=== PATIENT | female | born 1950 | race Asian ===

== ENCOUNTER → 2018-03-06 14:00 | Outpatient (CLI) | payer OTHER, SELFPAY | PROVIDERS: PCP Family Medicine | DX: Z23 Encounter for immunization (principal) ==

== ENCOUNTER → 2019-04-06 11:51 | Outpatient (CLI) | payer OTHER, SELFPAY | PROVIDERS: PCP Family Medicine | DX: Z23 Encounter for immunization (principal) | CPT/HCPCS: 90471; 90686 ==

== ENCOUNTER → 2019-05-13 07:10 | Outpatient (CLI) | payer OTHER, SELFPAY ==
[2019-05-13 07:56] LABS: Add Manual Diff / Slide Review NO; Basophils Absolute Auto 0 /uL (0-100); Basophils Percent Auto 1.1 % (0-2); Eosinophils Absolute Auto 100 /uL (0-450); Eosinophils Percent Auto 3.2 % (2-4); Hematocrit 39.2 % (36-46); Hemoglobin 13.3 g/dL (12.0-16.0); Lymphocytes Absolute Auto 1600 /uL (1100-4500); Lymphocytes Percent Auto 40.5 % (25-40); Mean Corpuscular HGB Conc 34.1 % (30-36); Mean Corpuscular Hemoglobin 31.4 PG (26-34); Mean Corpuscular Volume 92.1 fL (80-100); Monocytes Absolute Auto 300 /uL (0-900); Monocytes Percent Auto 7.5 % (3-14); Neutrophils Absolute Auto 1900 /uL (1500-7000); Neutrophils Percent Auto 47.7 % (50-75); Platelet Count 203 X10^3/uL (150-400); Red Blood Cell Count 4.25 X10^6/uL (4.0-5.2); Red Cell Distribution Width 12.1 % (11.6-14.8)
[2019-05-13 08:10] LABS: Appearance Urine UA CLEAR; Bilirubin Urine UA NEGATIVE (NEGATIVE); Color Urine UA YELLOW; Glucose Urine UA NEGATIVE (Negative); Ketones Urine UA NEGATIVE (NEGATIVE); Leukocyte Esterase Urine UA NEGATIVE (NEGATIVE); Nitrite Urine UA NEGATIVE (Negative); Occult Blood Urine UA 1+ (Negative); Protein Urine UA NEGATIVE (Negative); Specific Gravity Urine UA <=1.005 (1.000-1.035); Urobilinogen Urine UA 0.2 E.U./dL (0.2)
[2019-05-13 08:12] LABS: Bacteria Urine None Seen; WBC Urine None Seen (0-5/HPF)
[2019-05-13 08:17] LABS: Alanine Aminotransferase 16 IU/L (<35); Albumin 4.5 g/dL (3.5-5.0); Albumin Globulin Ratio 1.3 (1.0-2.8); Alkaline Phosphatase 91 U/L (38-126); Aspartate Aminotransferase 30 IU/L (14-36); BUN Creatinine Ratio 21.7 (6-22); Bilirubin Total 1.1 mg/dL (0.2-1.3); Blood Urea Nitrogen 13 mg/dL (7-17); Calcium 10.6 mg/dL (8.4-10.2); Carbon Dioxide 28 mmol/L (22-32); Chloride 98 mmol/L (98-107); Cholesterol 183 mg/dL (140-199); Estimated Glomerular Filt Rate > 60.0 mL/min (>60); Globulin 3.4 g/dL (1.7-4.1); Glucose 94 mg/dL (80-110); HDL Cholesterol 69 mg/dL (40-60); HEMOLYSIS < 15 (0-50); LDL Cholesterol Calculated 101 mg/dL (<100); Potassium 3.8 mmol/L (3.4-5.1); Sodium 134 mmol/L (137-145); Total Protein 7.9 g/dL (6.3-8.2); Triglycerides 66 mg/dL (35-150)
[2019-05-13 08:29] LABS: Culture Indicated Urine Cult Not Indicated; RBC Urine 0-1/HPF (0-5/HPF); Squamous Epithelial Cell Urine 0-1 /HPF (0-5/HPF)
[2019-05-13 09:53] LABS: Thyroid Stimulating Hormone 1.07 uIU/mL (0.47-4.68)
== END ==
PROVIDERS: PCP Family Medicine; Visit Provider Family Medicine
DX: E16.2 Hypoglycemia, unspecified (principal); I10 Essential (primary) hypertension; Z13.29 Encounter for screening for other suspected endocrine disorder
CPT/HCPCS: 36415; 80053; 80061; 81003; 81015; 84443; 85025

== ENCOUNTER → 2020-04-11 15:55 | Outpatient (CLI) | payer OTHER, SELFPAY | PROVIDERS: PCP Family Medicine; Referring Provider Internal Medicine; Visit Provider Internal Medicine | DX: Z23 Encounter for immunization (principal) | CPT/HCPCS: 90471; 90682 ==

== ENCOUNTER 2020-11-25 05:35 | Emergency (ER) | payer OTHER, SELFPAY ==
[2020-11-25 07:25] VITALS: BP 174/79; PULSE 62; RESP 18; TEMP 36.3; O2SAT 99; BMI 21.5
--- NOTE | 2020-11-25 07:54 | ED.BACK ---
HPI - Back Pain/Injury General Chief Complaint: Back Pain/Injury Stated Complaint: LOWER BACK PAIN Time Seen by Provider: 11/25/20 07:34 Source: patient Limitations: no limitations History of Present Illness HPI Narrative: 70-year-old with no significant medical history who takes no medications and and has had significant reactions to small doses of aspirin, Tylenol, Motrin, Vicodin and is not interested in pharmacologic treatment of her acute back pain. She describes on November 16 helping lift a patient and felt of pull in a pop in her back and has been having left-sided low back pain and central L4-L5 back pain ever since. She has been using ice and heat along with yoga stretches but finds that it isn't improving at all. 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 She is able to sleep but is wondering what additional options there might be and is also somewhat concerned that it is not improving at all. She has no fevers, cough, chills, dysuria, flank pain, abdominal pain, chest pain or palpitations. She has no skin changes over the area of concern and is just today beginning to notice some mild radicular pain into the middle of her right buttock. Related Data Allergies Allergy/AdvReac Type Severity Reaction Status Date / Time latex Allergy Verified 05/11/19 08:56 acetaminophen [From Vicodin] AdvReac Verified 05/11/19 08:56 hydrocodone [From Vicodin] AdvReac Verified 05/11/19 08:56 Review of Systems Review of Systems Narrative: Remainder of complete review of systems is otherwise unremarkable except for that included in the HPI. Patient History Surgical History Anesthesia History of cataract removal with insertion of prosthetic lens (~2013) History of removal of cyst (~1984) Family History Father No problems noted. Sister No problems noted. Social History Smoking Status: Never smoker Smoking Status: Never smoker Substance Use Type: does not use Exam Narrative Exam Narrative: General: Alert appropriate in no acute distress Respiratory: Able to speak in full sentences, no obvious respiratory distress Skin: No obvious rashes, warm and dry Neurologic: Grossly intact no obvious asymmetries or abnormalities Psych: appropriate insight and affect, cooperative Spine: No redness or swelling over the spine. She does have some midline tenderness to palpation around the L4-L5 area and some minor paraspinous muscle spasm on the left lower lumbar area. She has no neurologic or vascular deficits into lower extremities. Initial Vital Signs Initial Vital Signs: Vital Signs Temperature 97.4 F L 11/25/20 07:25 Pulse Rate 62 11/25/20 07:25 Respiratory Rate 18 11/25/20 07:25 Blood Pressure 174/79 H 11/25/20 07:25 Pulse Oximetry 99 11/25/20 07:25 Course Orders Ordered: ED Orders 11/25/20 08:02 XR lumbar spine 2-3V Stat Vital Signs Vital signs: Vital Signs - 8 hr 11/25/20 07:25 Temperature 97.4 F L Pulse Rate 62 Respiratory Rate 18 Blood Pressure 174/79 H Pulse Oximetry 99 [facility] - Back Pain/Injury Imaging Data XR Lumbar spine: My Impression: No evidence of dramatic osteoporosis, no compression fracture, mild degenerative joint disease L4-5 and L5-S1. [facility] Narrative Medical decision making narrative: 70-year-old woman with a work injury while lifting a patient on November 16 with continued low back pain. She is not interested in any pharmacologic treatment including Tylenol. She is at significant risk for osteoporosis with her age, petite size and heritage period lumbar spine x-rays do not show evidence of an acute compression fracture. 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 Discharge Plan Departure Patient Disposition: Home Clinical Impression: Strain of lumbar region Qualifiers: Encounter type: initial encounter Qualified Code(s): S39.012A - Strain of muscle, fascia and tendon of lower back, initial encounter Instructions: DI for Low Back Pain Activity Restrictions/Additional Instructions: Thank you for coming in today You have no evidence of of compression fracture or other significant pathology. You have clearly strange your back. 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 I hope you feel better Referrals: Cheyanne Gonzalez, [Primary Care Provider] -
--- NOTE | 2020-11-25 08:02 | DI.RAD.S_ITS ---
PROCEDURE: XR LUMBAR SPINE 2-3V INDICATIONS: ? L 4 or 5 compression fracture TECHNIQUE: 3 views of the lumbar spine were acquired. COMPARISON: None. FINDINGS: Bones: 5 [id number] vertebrae are present. There is normal bony alignment. Question mild acute superior endplate compression fracture of L5. This is not definite. No suspicious bony lesions. Lower lumbar facet arthropathy. Soft tissues: Overlying bowel gas pattern is normal. No suspicious soft tissue calcifications. IMPRESSION: Lower lumbar facet arthropathy. Question minimal superior endplate compression fracture of L5. Comment: Consider lumbar spine MRI for correlation of an acute compression fracture. Dictated by: Lamont Mcgregor M.D. on 11/25/2020 at 8:46 Approved by: Lamont Mcgregor M.D. on 11/25/2020 at 8:47
== END 2020-11-25 09:20 | disposition home or self-care (01) ==
PROVIDERS: Emergency Provider Emergency Medicine; PCP Family Medicine
DX: S39.012A Strain of muscle, fascia and tendon of lower back, initial encounter (principal)
CPT/HCPCS: 72100; 99283

== ENCOUNTER → 2021-03-26 06:44 | Outpatient (CLI) | payer OTHER, SELFPAY ==
[2021-03-26 07:57] LABS: Add Manual Diff / Slide Review NO; Basophils Absolute Auto 0 /uL (0-100); Basophils Percent Auto 0.8 % (0-2); Eosinophils Absolute Auto 100 /uL (0-450); Eosinophils Percent Auto 1.4 % (2-4); Hematocrit 40.2 % (36-46); Hemoglobin 13.5 g/dL (12.0-16.0); Lymphocytes Absolute Auto 1800 /uL (1100-4500); Lymphocytes Percent Auto 37.3 % (25-40); Mean Corpuscular HGB Conc 33.5 % (30-36); Mean Corpuscular Hemoglobin 30.7 PG (26-34); Mean Corpuscular Volume 91.8 fL (80-100); Monocytes Absolute Auto 400 /uL (0-900); Monocytes Percent Auto 7.2 % (3-14); Neutrophils Absolute Auto 2600 /uL (1500-7000); Neutrophils Percent Auto 53.3 % (50-75); Platelet Count 192 X10^3/uL (150-400); Red Blood Cell Count 4.38 X10^6/uL (4.0-5.2); Red Cell Distribution Width 12.5 % (11.6-14.8); White Blood Cell Count 4.8 X10^3/uL (4.5-11.0)
[2021-03-26 08:05] LABS: Creatinine Urine Random 12.2 mg/dL
[2021-03-26 08:13] LABS: Alanine Aminotransferase 16 IU/L (<35); Albumin 4.7 g/dL (3.5-5.0); Albumin Globulin Ratio 1.3 (1.0-2.8); Alkaline Phosphatase 83 U/L (38-126); Aspartate Aminotransferase 31 IU/L (14-36); BUN Creatinine Ratio 17.5 (6-22); Bilirubin Total 1.1 mg/dL (0.2-1.3); Blood Urea Nitrogen 10 mg/dL (7-17); Calcium 10.5 mg/dL (8.4-10.2); Carbon Dioxide 30 mmol/L (22-32); Chloride 97 mmol/L (98-107); Cholesterol 185 mg/dL (140-199); Estimated Glomerular Filt Rate > 60.0 mL/min (>60); Globulin 3.5 g/dL (1.7-4.1); Glucose 93 mg/dL (80-110); HDL Cholesterol 81 mg/dL (40-60); HEMOLYSIS < 15 (0-50); LDL Cholesterol Calculated 89 mg/dL (<100); Potassium 3.4 mmol/L (3.4-5.1); Sodium 134 mmol/L (137-145); Total Protein 8.2 g/dL (6.3-8.2); Triglycerides 73 mg/dL (35-150)
[2021-03-26 08:16] LABS: Microalbumin Urine Random < 0.6 mg/dL (0-1.6)
[2021-03-27 14:31] LABS: Calcium 10.2 mg/dL (8.7-10.3); Parathyroid Hormone, Intact 116 pg/mL (15-65)
== END ==
PROVIDERS: PCP Family Medicine; Referring Provider Family Medicine; Visit Provider Family Medicine
DX: E83.52 Hypercalcemia (principal); I10 Essential (primary) hypertension
CPT/HCPCS: 36415; 80053; 80061; 82043; 82310; 82570; 83970; 84443; 85025

== ENCOUNTER → 2021-04-18 06:49 | Outpatient (CLI) | payer OTHER, MEDICARE, SELFPAY | PROVIDERS: PCP Family Medicine; Referring Provider Internal Medicine; Visit Provider Internal Medicine | DX: Z23 Encounter for immunization (principal) | CPT/HCPCS: 90471; 90686 ==

== ENCOUNTER 2021-08-31 14:30 | Outpatient (RCR) | payer OTHER, MEDICARE, SELFPAY ==
--- NOTE | 2021-08-17 10:40 | PT.OIE ---
Current Diagnoses Other chronic pain (08/17/21) Pain in right shoulder (08/17/21) Impingement syndrome of right shoulder (08/17/21) Past Medical History (Last Updated 04/13/21 @ 15:18 by Fahad Gramajo MD) History of cataract removal with insertion of prosthetic lens (~2013) History of removal of cyst (~1984) Hypercalcemia Hyperparathyroidism Past Surgical History (Last Reviewed 01/02/21 @ 20:32 by SHOSHANA Bermudez) Anesthesia History of cataract removal with insertion of prosthetic lens (~2013) History of removal of cyst (~1984) Visit Care Team Role Provider Type Fahad Gramajo MD Attending Provider Physician Family Provider Primary Care Provider Referring Provider Specialty: [facility] Address: [address] [place] [address], [facility] Email: [email or web address] Physical Therapy Initial Evaluation PT-OP-A Visit Information Start: 08/16/21 10:39 Freq: Status: Active Protocol: Document 08/17/21 08:17 AMB (Rec: 08/17/21 08:55 AMB [id number]) Out-Patient Physical Therapy Visit Information Visit Information Visit Type Initial Evaluation PT-OP-B Current Condition Start: 08/16/21 10:39 Freq: Status: Active Protocol: Document 08/17/21 08:17 AMB (Rec: 08/17/21 08:55 AMB [id number]) Current Condition History of Current Condition Onset Date 1 month Current Complaints R shoulder pain History of Current Condition Insidious onset, noticed pain in shoulder one morning when waking up, denies anything specific the day before. 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 She notes pulling on heavy doors increases her symptoms. She is on light duty currently. She denies hair care/dressing are problematic, does have to be careful with lifting. 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 Was doing 50 pushups, but stopped because of the pain. Denies numbness/ tingling/radiating sx. Pain can go up into neck a little. RHD. Treatment Goals Patient/Caregiver Goals Decrease shoulder pain Prior Functional Status Baseline Function- ADL's Independent Baseline Function- Mobility Independent Current Functional Impairments (Reported) Functional Limitations- Work/School On light duty, tries to avoid moving patients, pain with pulling on heavy doors with affected arm. PT-OP-C Subjective Start: 08/16/21 10:39 Freq: Status: Active Protocol: Document 08/17/21 08:15 AMB (Rec: 08/19/21 10:40 AMB [id number]) Patient Questionnaires Quick Dash- Upper Extremity Quick Dash UE Score 14 Quick Dash UE Impairment 1 to 19% Impaired (Score 1-19) OP-PT Pain Assessment Comments Pain Comments 06/04 R shoulder PT-OP-J Posture/Palpation/Skin Start: 08/16/21 10:39 Freq: Status: Active Protocol: Document 08/17/21 08:15 AMB (Rec: 08/19/21 10:40 AMB [id number]) Posture Evaluation Comments Posture Comments Mild forward head Palpation Assessment Location One Palpation Location R shoulder Palpation Details Denies any tenderness over scapula, does have tenderness over biceps tendons and acromion process PT-OP-K Range of Motion Start: 08/16/21 10:39 Freq: Status: Active Protocol: Document 08/17/21 08:15 AMB (Rec: 08/19/21 10:40 AMB [id number]) Shoulder Goniometric Range of Motion Shoulder Right Passive Testing Position Supine Flexion 170 Abduction 150 External Rotation at 90 degrees 90 Abduction Comments abduction painful Left Active Shoulder ROM WFL Yes Testing Position Sitting PT-OP-L Special Tests Start: 08/16/21 10:39 Freq: Status: Active Protocol: Document 08/17/21 08:15 AMB (Rec: 08/19/21 10:40 AMB [id number]) Special Tests Shoulder Special Tests Neer Impingement Test Results + Mccarty Alfredito Impingement Test Results + PT-OP-M Strength Start: 08/16/21 10:39 Freq: Status: Active Protocol: Document 08/17/21 08:15 AMB (Rec: 08/19/21 10:40 AMB [id number]) Shoulder Strength Shoulder Manual Muscle Testing Right Flexion 4 Good Extension 4 Good Abduction (C5) 4+ Good+ External Rotation 4 Good Internal Rotation 4+ Good+ Comments extension painful PT-OP-Q Treatments Start: 08/16/21 10:39 Freq: Status: Active Protocol: Document 03/25/22 08:15 AMB (Rec: 08/19/21 10:40 AMB [id number]) Therapeutic Exercises Standing Exercises t band extension Side bilateral Resistance #3 latex free Reps/Minutes 2x10 t band rows Side bilateral Resistance #3 latex free Reps/Minutes 2x10 PT-OP-T Assessment and Plan Start: 08/16/21 10:39 Freq: Status: Active Protocol: Document 08/17/21 08:15 AMB (Rec: 08/19/21 10:40 AMB [id number]) Physical Therapy Assessment Rehab Potential Rehabilitation Potential Good Evaluation Complexity Number of Personal Factors/Comorbidities 0 Number of Body Systems Impaired 4 or More Clinical Presentation at Evaluation Stable Impairments Impairments Functional Activities,Pain,ROM ,Strength Goals Two Impairment Strength Short Term Goal (STG) Billy will show improve shoulder strength to 4+/5 in all planes. STG Duration 4 weeks Mechanical Technical Service Specialist Goal (LTG) Billy will show improved shoulder strength by being able to open any door without shoulder pain. LTG Duration 8 weeks One Impairment ROM Short Term Goal (STG) Billy will increase her right shoulder abduction AROM to 180 degrees. STG Duration 4 weeks Assessment Summary Assessment Billy attends physical therapy with recent onset right anterior and lateral shoulder pain. ROM was mildly restricted into abduction and pt reported pain with resisted extension and external rotation. Special tests did show signs of impingement. 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 Her MD already put her on light duty. PT encouraged her to open the door with good body mechanics, using the weight of her body and using the left arm if able. Pt was still very concerned about return to work, so directed her to discuss further with HR. Pt would benefit from PT for shoulder strengthening to reduce impingement symptoms so she can return to using her right shoulder without pain. Physical Therapy Plan Frequency and Duration Frequency of Treatment 2x/Week Duration of Treatment 8 weeks Plan of Care Start Date 08/17/21 Plan of Care End Date 10/12/21 Therapeutic Interventions Therapeutic Interventions Home Exercise Program,Joint Mobilizations,Manual Therapy, Neuromuscular Re-education, Self-Care/Home Management, Therapeutic Activities, Therapeutic Exercises Modalities Cold Pack/Ice Massage,Electric Stimulation,Hot Packs, Ultrasound Next Visit Focus/Plan Next Note Type Treatment Note Next Visit Plan Reassess HEP, pogress strenghtening especially into rotation
--- NOTE | 2021-08-17 10:41 | PT.OPPOC ---
Physical, Occupational & Speech Therapy At [facility] Current Diagnoses Other chronic pain (08/17/21) Pain in right shoulder (08/17/21) Impingement syndrome of right shoulder (08/17/21) Visit Care Team Role Provider Type Fahad Gramajo MD Attending Provider Physician Family Provider Primary Care Provider Referring Provider Specialty: Family Practice Address: [address] [place] [address], [facility] Email: [email or web address] Plan Of Care PT-OP-T Assessment and Plan Start: 08/16/21 10:39 Freq: Status: Active Protocol: Document 08/17/21 08:15 AMB (Rec: 08/19/21 10:40 AMB [id number]) Physical Therapy Assessment Rehab Potential Rehabilitation Potential Good Evaluation Complexity Number of Personal Factors/Comorbidities 0 Number of Body Systems Impaired 4 or More Clinical Presentation at Evaluation Stable Impairments Impairments Functional Activities,Pain,ROM ,Strength Goals Two Impairment Strength Short Term Goal (STG) Billy will show improve shoulder strength to 4+/5 in all planes. STG Duration 4 weeks Vertical Contour Band Saw Operator Goal (LTG) Billy will show improved shoulder strength by being able to open any door without shoulder pain. LTG Duration 8 weeks One Impairment ROM Short Term Goal (STG) Billy will increase her right shoulder abduction AROM to 180 degrees. STG Duration 4 weeks Assessment Summary Assessment Billy attends physical therapy with recent onset right anterior and lateral shoulder pain. ROM was mildly restricted into abduction and pt reported pain with resisted extension and external rotation. Special tests did show signs of impingement. 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 Her MD already put her on light duty. PT encouraged her to open the door with good body mechanics, using the weight of her body and using the left arm if able. Pt was still very concerned about return to work, so directed her to discuss further with HR. Pt would benefit from PT for shoulder strengthening to reduce impingement symptoms so she can return to using her right shoulder without pain. Physical Therapy Plan Frequency and Duration Frequency of Treatment 2x/Week Duration of Treatment 8 weeks Plan of Care Start Date 08/17/21 Plan of Care End Date 10/12/21 Therapeutic Interventions Therapeutic Interventions Home Exercise Program,Joint Mobilizations,Manual Therapy, Neuromuscular Re-education, Self-Care/Home Management, Therapeutic Activities, Therapeutic Exercises Modalities Cold Pack/Ice Massage,Electric Stimulation,Hot Packs, Ultrasound Next Visit Focus/Plan Next Note Type Treatment Note Next Visit Plan Reassess HEP, pogress strenghtening especially into rotation Plan of Care Dates Plan of Care Start Date 08/17/21 Plan of Care End Date 10/12/21 Electronically Signed by: Anabelle Laureano, PT 08/19/21 1041 Please Sign and Return: I have reviewed this Plan of Care and certify that the skilled therapy services above are required to meet the patient?s needs. Physician Signature Date Printed Name and Credentials Clinical Instructor Signature Printed Name and Credentials
--- NOTE | 2021-08-31 15:06 | PT.OTN ---
Current Diagnoses Other chronic pain (08/31/21) Pain in right shoulder (08/31/21) Impingement syndrome of right shoulder (08/31/21) Physical Therapy Treatment Note PT-OP-A Visit Information Start: 08/16/21 10:39 Freq: Status: Active Protocol: Document 08/31/21 14:57 MA (Rec: 08/31/21 15:05 MA [id number]) Out-Patient Physical Therapy Visit Information Visit Information Visit Type Treatment Note Visit Start Time 14:30 Visit Stop Time 15:55 Total Visit Minutes 25 Visit Number 1 Number of RIBBON BLOCKER Visits 1 PT-OP-B Current Condition Start: 08/16/21 10:39 Freq: Status: Active Protocol: Document 08/17/21 08:17 AMB (Rec: 08/17/21 08:55 AMB [id number]) Current Condition History of Current Condition Onset Date 1 month Current Complaints R shoulder pain History of Current Condition Insidious onset, noticed pain in shoulder one morning when waking up, denies anything specific the day before. 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 She notes pulling on heavy doors increases her symptoms. She is on light duty currently. She denies hair care/dressing are problematic, does have to be careful with lifting. 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 Was doing 50 pushups, but stopped because of the pain. Denies numbness/ tingling/radiating sx. Pain can go up into neck a little. RHD. Treatment Goals Patient/Caregiver Goals Decrease shoulder pain Prior Functional Status Baseline Function- ADL's Independent Baseline Function- Mobility Independent Current Functional Impairments (Reported) Functional Limitations- Work/School On light duty, tries to avoid moving patients, pain with pulling on heavy doors with affected arm. PT-OP-C Subjective Start: 08/16/21 10:39 Freq: Status: Active Protocol: Document 08/31/21 14:57 MA (Rec: 08/31/21 15:05 MA [id number]) OP-PT Subjective Patient Comments Patient Comments Pt states her sister recently passed so she had time off work and the rest seemed to heal her shd. She has had no pain since eval and would like to be d/c PT-OP-J Posture/Palpation/Skin Start: 08/16/21 10:39 Freq: Status: Active Protocol: Document 08/17/21 08:15 AMB (Rec: 08/19/21 10:40 AMB [id number]) Posture Evaluation Comments Posture Comments Mild forward head Palpation Assessment Location One Palpation Location R shoulder Palpation Details Denies any tenderness over scapula, does have tenderness over biceps tendons and acromion process PT-OP-K Range of Motion Start: 08/16/21 10:39 Freq: Status: Active Protocol: Document 08/17/21 08:15 AMB (Rec: 08/19/21 10:40 AMB [id number]) Shoulder Goniometric Range of Motion Shoulder Right Passive Testing Position Supine Flexion 170 Abduction 150 External Rotation at 90 degrees 90 Abduction Comments abduction painful Left Active Shoulder ROM WFL Yes Testing Position Sitting PT-OP-L Special Tests Start: 08/16/21 10:39 Freq: Status: Active Protocol: Document 08/17/21 08:15 AMB (Rec: 08/19/21 10:40 AMB [id number]) Special Tests Shoulder Special Tests Neer Impingement Test Results + Mccarty Alfredito Impingement Test Results + PT-OP-M Strength Start: 08/16/21 10:39 Freq: Status: Active Protocol: Document 08/17/21 08:15 AMB (Rec: 08/19/21 10:40 AMB [id number]) Shoulder Strength Shoulder Manual Muscle Testing Right Flexion 4 Good Extension 4 Good Abduction (C5) 4+ Good+ External Rotation 4 Good Internal Rotation 4+ Good+ Comments extension painful PT-OP-Q Treatments Start: 08/16/21 10:39 Freq: Status: Active Protocol: Document 08/31/21 14:57 MA (Rec: 08/31/21 15:05 MA [id number]) Therapeutic Exercises Standing Exercises Push Ups Standing Exercise Name elevated push ups Side bilateral Reps/Minutes x10 Comments no pain t band extension Side bilateral Resistance #3 latex free Reps/Minutes 2x10 t band rows Side bilateral Resistance #3 latex free Reps/Minutes 2x10 Therapeutic Activity Therapeutic Activity Opening Doors Reps/Minutes 5' Comments Worked on how to properly open doors without causing shd pain. Manual Therapy Treatment Soft Tissue Mobilization R shd Body Location RTC Mobilization Type Myofascial Release,Trigger Point Release Intensity/Depth Moderate Body Position Supine PT-OP-T Assessment and Plan Start: 08/16/21 10:39 Freq: Status: Active Protocol: Document 08/31/21 14:57 MA (Rec: 08/31/21 15:05 MA [id number]) Physical Therapy Assessment Goals Two Impairment Strength Short Term Goal (STG) Billy will show improve shoulder strength to 4+/5 in all planes. STG Duration 4 weeks Halfway Goal (LTG) Billy will show improved shoulder strength by being able to open any door without shoulder pain. LTG Duration Achieved One Impairment ROM Short Term Goal (STG) Billy will increase her right shoulder abduction AROM to 180 degrees. STG Duration Achieved Assessment Summary Assessment Pt has had no pain recently. Reviewed HEP exercises and demonstrated elevated push ups as modification if pt ever has shd pain again. Pt has full R shd ROM without pain and has been able to return to work without any complications. Pt feels ready for d/c and is already on an exercise program so denies any additional HEP. Physical Therapy Plan Frequency and Duration Frequency of Treatment 2x/Week Duration of Treatment 8 weeks Plan of Care Start Date 08/17/21 Plan of Care End Date 10/12/21 Therapeutic Interventions Therapeutic Interventions Home Exercise Program,Joint Mobilizations,Manual Therapy, Neuromuscular Re-education, Self-Care/Home Management, Therapeutic Activities, Therapeutic Exercises Modalities Cold Pack/Ice Massage,Electric Stimulation,Hot Packs, Ultrasound Next Visit Focus/Plan Next Note Type Discharge Summary
--- NOTE | 2021-08-31 15:11 | PT.OPDS ---
Current Diagnoses Other chronic pain (08/31/21) Pain in right shoulder (08/31/21) Impingement syndrome of right shoulder (08/31/21) Visit Care Team Role Provider Type Fahad Gramajo MD Attending Provider Physician Family Provider Primary Care Provider Referring Provider Specialty: Family Practice Address: [address] [place] [address], [id number] Email: [email or web address] Visit Number Visit Number 2 Discharge Summary PT-OP-B Current Condition Start: 08/16/21 10:39 Freq: Status: Active Protocol: Document 08/17/21 08:17 AMB (Rec: 08/17/21 08:55 AMB [id number]) Current Condition History of Current Condition Onset Date 1 month Current Complaints R shoulder pain History of Current Condition Insidious onset, noticed pain in shoulder one morning when waking up, denies anything specific the day before. 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 She notes pulling on heavy doors increases her symptoms. She is on light duty currently. She denies hair care/dressing are problematic, does have to be careful with lifting. 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 Was doing 50 pushups, but stopped because of the pain. Denies numbness/ tingling/radiating sx. Pain can go up into neck a little. RHD. Treatment Goals Patient/Caregiver Goals Decrease shoulder pain Prior Functional Status Baseline Function- ADL's Independent Baseline Function- Mobility Independent Current Functional Impairments (Reported) Functional Limitations- Work/School On light duty, tries to avoid moving patients, pain with pulling on heavy doors with affected arm. PT-OP-C Subjective Start: 08/16/21 10:39 Freq: Status: Active Protocol: Document 08/31/21 14:57 MA (Rec: 08/31/21 15:05 MA [id number]) OP-PT Subjective Patient Comments Patient Comments Pt states her sister recently passed so she had time off work and the rest seemed to heal her shd. She has had no pain since eval and would like to be d/c PT-OP-J Posture/Palpation/Skin Start: 08/16/21 10:39 Freq: Status: Active Protocol: Document 08/17/21 08:15 AMB (Rec: 08/19/21 10:40 AMB [id number]) Posture Evaluation Comments Posture Comments Mild forward head Palpation Assessment Location One Palpation Location R shoulder Palpation Details Denies any tenderness over scapula, does have tenderness over biceps tendons and acromion process PT-OP-K Range of Motion Start: 08/16/21 10:39 Freq: Status: Active Protocol: Document 08/17/21 08:15 AMB (Rec: 08/19/21 10:40 AMB [id number]) Shoulder Goniometric Range of Motion Shoulder Right Passive Testing Position Supine Flexion 170 Abduction 150 External Rotation at 90 degrees 90 Abduction Comments abduction painful Left Active Shoulder ROM WFL Yes Testing Position Sitting PT-OP-L Special Tests Start: 08/16/21 10:39 Freq: Status: Active Protocol: Document 08/17/21 08:15 AMB (Rec: 08/19/21 10:40 AMB [id number]) Special Tests Shoulder Special Tests Neer Impingement Test Results + Mccarty Alfredito Impingement Test Results + PT-OP-M Strength Start: 08/16/21 10:39 Freq: Status: Active Protocol: Document 08/17/21 08:15 AMB (Rec: 08/19/21 10:40 AMB [id number]) Shoulder Strength Shoulder Manual Muscle Testing Right Flexion 4 Good Extension 4 Good Abduction (C5) 4+ Good+ External Rotation 4 Good Internal Rotation 4+ Good+ Comments extension painful PT-OP-T Assessment and Plan Start: 08/16/21 10:39 Freq: Status: Active Protocol: Document 08/31/21 15:06 AMB (Rec: 08/31/21 15:09 AMB [id number]) Physical Therapy Assessment Goals Two Impairment Strength Short Term Goal (STG) Billy will show improve shoulder strength to 4+/5 in all planes. STG Duration 4 weeks Usp Goal (LTG) Billy will show improved shoulder strength by being able to open any door without shoulder pain. LTG Duration Achieved One Impairment ROM Short Term Goal (STG) Billy will increase her right shoulder abduction AROM to 180 degrees. STG Duration Achieved Assessment Summary Assessment Pt has had no pain recently, she had to take time off for a family emergency and feels this was enough to resolve her shoulder pain. Reviewed HEP exercises and demonstrated elevated push ups as modification if pt ever has shd pain again. Pt has full R shd ROM without pain and has been able to return to work without any complications. Pt feels ready for d/c and is already on an exercise program so denies any additional HEP. Physical Therapy Plan Discharge Physical Therapy Discharge Reasons Goals Met
--- NOTE | 2021-08-31 15:13 | PT.OPDS ---
Current Diagnoses Other chronic pain (08/31/21) Pain in right shoulder (08/31/21) Impingement syndrome of right shoulder (08/31/21) Visit Care Team Role Provider Type Fahad Gramajo MD Attending Provider Physician Family Provider Primary Care Provider Referring Provider Specialty: Family Practice Address: [address] [place] [address], [id number] Email: [email or web address] Visit Number Visit Number 2 Discharge Summary PT-OP-B Current Condition Start: 08/16/21 10:39 Freq: Status: Active Protocol: Document 08/17/21 08:17 AMB (Rec: 08/17/21 08:55 AMB [id number]) Current Condition History of Current Condition Onset Date 1 month Current Complaints R shoulder pain History of Current Condition Insidious onset, noticed pain in shoulder one morning when waking up, denies anything specific the day before. 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 She notes pulling on heavy doors increases her symptoms. She is on light duty currently. She denies hair care/dressing are problematic, does have to be careful with lifting. 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 Was doing 50 pushups, but stopped because of the pain. Denies numbness/ tingling/radiating sx. Pain can go up into neck a little. RHD. Treatment Goals Patient/Caregiver Goals Decrease shoulder pain Prior Functional Status Baseline Function- ADL's Independent Baseline Function- Mobility Independent Current Functional Impairments (Reported) Functional Limitations- Work/School On light duty, tries to avoid moving patients, pain with pulling on heavy doors with affected arm. PT-OP-C Subjective Start: 08/16/21 10:39 Freq: Status: Active Protocol: Document 08/31/21 14:57 MA (Rec: 08/31/21 15:05 MA [id number]) OP-PT Subjective Patient Comments Patient Comments Pt states her sister recently passed so she had time off work and the rest seemed to heal her shd. She has had no pain since eval and would like to be d/c PT-OP-J Posture/Palpation/Skin Start: 08/16/21 10:39 Freq: Status: Active Protocol: Document 08/17/21 08:15 AMB (Rec: 08/19/21 10:40 AMB [id number]) Posture Evaluation Comments Posture Comments Mild forward head Palpation Assessment Location One Palpation Location R shoulder Palpation Details Denies any tenderness over scapula, does have tenderness over biceps tendons and acromion process PT-OP-K Range of Motion Start: 08/16/21 10:39 Freq: Status: Active Protocol: Document 08/17/21 08:15 AMB (Rec: 08/19/21 10:40 AMB [id number]) Shoulder Goniometric Range of Motion Shoulder Right Passive Testing Position Supine Flexion 170 Abduction 150 External Rotation at 90 degrees 90 Abduction Comments abduction painful Left Active Shoulder ROM WFL Yes Testing Position Sitting PT-OP-L Special Tests Start: 08/16/21 10:39 Freq: Status: Active Protocol: Document 08/17/21 08:15 AMB (Rec: 08/19/21 10:40 AMB [id number]) Special Tests Shoulder Special Tests Neer Impingement Test Results + Mccarty Alfredito Impingement Test Results + PT-OP-M Strength Start: 08/16/21 10:39 Freq: Status: Active Protocol: Document 08/17/21 08:15 AMB (Rec: 08/19/21 10:40 AMB [id number]) Shoulder Strength Shoulder Manual Muscle Testing Right Flexion 4 Good Extension 4 Good Abduction (C5) 4+ Good+ External Rotation 4 Good Internal Rotation 4+ Good+ Comments extension painful PT-OP-T Assessment and Plan Start: 08/16/21 10:39 Freq: Status: Active Protocol: Document 08/31/21 15:06 AMB (Rec: 08/31/21 15:09 AMB [id number]) Physical Therapy Assessment Goals Two Impairment Strength Short Term Goal (STG) Billy will show improve shoulder strength to 4+/5 in all planes. STG Duration 4 weeks Assisted Goal (LTG) Billy will show improved shoulder strength by being able to open any door without shoulder pain. LTG Duration Achieved One Impairment ROM Short Term Goal (STG) Billy will increase her right shoulder abduction AROM to 180 degrees. STG Duration Achieved Assessment Summary Assessment Pt has had no pain recently, she had to take time off for a family emergency and feels this was enough to resolve her shoulder pain. Reviewed HEP exercises and demonstrated elevated push ups as modification if pt ever has shd pain again. Pt has full R shd ROM without pain and has been able to return to work without any complications. Pt feels ready for d/c and is already on an exercise program so denies any additional HEP. Physical Therapy Plan Discharge Physical Therapy Discharge Reasons Goals Met
== END 2021-09-03 14:09 ==
LOC: PHYS 14:30
PROVIDERS: Family Provider Family Medicine; PCP Family Medicine; Referring Provider Family Medicine; Visit Provider Family Medicine
DX: G89.29 Other chronic pain (principal); M25.511 Pain in right shoulder; M75.41 Impingement syndrome of right shoulder
CPT/HCPCS: 97140; 97161; 97530

== ENCOUNTER 2023-06-16 09:32 | Emergency (ER) | payer MEDICARE, OTHER, SELFPAY ==
[2023-06-16 09:38] VITALS: BP 200/89; PULSE 71; RESP 18; TEMP 36.7; O2SAT 100; BMI 21.7
[2023-06-16 09:48] VITALS: PULSE 71; RESP 23; O2SAT 99
[2023-06-16] MEDS: hydroCHLOROthiazide 25 MG TABLET PO (09:55)
[2023-06-16 10:00] LABS: Add Manual Diff / Slide Review NO; Basophils Absolute Auto 0 /uL (0-100); Basophils Percent Auto 0.9 % (0-2); Eosinophils Absolute Auto 100 /uL (0-450); Eosinophils Percent Auto 2.5 % (2-4); Hematocrit 41.7 % (36-46); Lymphocytes Absolute Auto 1200 /uL (1100-4500); Lymphocytes Percent Auto 34.2 % (25-40); Mean Corpuscular HGB Conc 33.6 % (30-36); Mean Corpuscular Hemoglobin 31.4 PG (26-34); Mean Corpuscular Volume 93.5 fL (80-100); Monocytes Absolute Auto 300 /uL (0-900); Monocytes Percent Auto 8.3 % (3-14); Neutrophils Absolute Auto 1900 /uL (1500-7000); Neutrophils Percent Auto 54.1 % (50-75); Platelet Count 193 X10^3/uL (150-400); Red Blood Cell Count 4.46 X10^6/uL (4.0-5.2); Red Cell Distribution Width 12.2 % (11.6-14.8); White Blood Cell Count 3.5 X10^3/uL (4.5-11.0)
[2023-06-16 10:05] VITALS: PULSE 77; O2SAT 99
[2023-06-16 10:06] VITALS: BP 186/81; PULSE 64; O2SAT 98
[2023-06-16 10:09] LABS: Urine Volume 10mL (spun)
[2023-06-16 10:10] LABS: Appearance Urine UA CLEAR; Bilirubin Urine UA NEGATIVE (NEGATIVE); Color Urine UA YELLOW; Glucose Urine UA NEGATIVE (Negative); Ketones Urine UA NEGATIVE (NEGATIVE); Leukocyte Esterase Urine UA NEGATIVE (NEGATIVE); Nitrite Urine UA NEGATIVE (Negative); Occult Blood Urine UA 1+ (Negative); Protein Urine UA NEGATIVE (Negative); Urobilinogen Urine UA 0.2 E.U./dL (0.2)
[2023-06-16 10:14] LABS: Alanine Aminotransferase 16 IU/L (<35); Albumin 4.5 g/dL (3.5-5.0); Albumin Globulin Ratio 1.2 (1.0-2.8); Alkaline Phosphatase 72 U/L (38-126); Aspartate Aminotransferase 32 IU/L (14-36); Bilirubin Total 0.8 mg/dL (0.2-1.3); Blood Urea Nitrogen 9 mg/dL (7-17); Calcium 10.5 mg/dL (8.4-10.2); Carbon Dioxide 28 mmol/L (22-32); Chloride 101 mmol/L (98-107); Estimated Glomerular Filt Rate > 60 mL/min (>60); Globulin 3.9 g/dL (1.7-4.1); Glucose 129 mg/dL (80-110); HEMOLYSIS 47 (0-50); Potassium 3.9 mmol/L (3.4-5.1); Sodium 137 mmol/L (137-145); Total Protein 8.4 g/dL (6.3-8.2)
--- NOTE | 2023-06-16 10:17 | ED_ITS ---
HPI - General Adult General Chief complaint: Hypertension Stated complaint: blood pressure high dizziness Time Seen by Provider: 06/16/23 09:34 Source: patient Mode of arrival: Ambulatory History of Present Illness HPI narrative: 73-year-old female with no reported past medical history presents for elevated blood pressures since May 31. reports intermittent dizziness that she describes as lightheadedness, none currently. She called her PCP for an appointment for her blood pressure, but when she told the nurses her blood pressure they recommended she come to the ER. She has no chest pain, shortness of breath, leg swelling, blurred vision, headache, other complaints at this time. Previously on lisinopril, however she states that it made her cough, and previously losartan made her dizzier. Related Data Previous Rx's Medication Instructions Recorded losartan 50 mg tablet 50 mg PO DAILY #90 tabs 01/08/22 hydrochlorothiazide 12.5 mg tablet 12.5 mg PO DAILY #60 tabs 06/16/23 Allergies Allergy/AdvReac Type Severity Reaction Status Date / Time latex Allergy Verified 05/16/21 07:11 lisinopril Allergy Verified 06/16/23 09:38 losartan Allergy Verified 06/16/23 09:38 acetaminophen [From Vicodin] AdvReac Verified 05/16/21 07:11 hydrocodone [From Vicodin] AdvReac Verified 05/16/21 07:11 Review of Systems Review of Systems Narrative: negative Patient History Medical History (Updated 06/16/23 @ 10:33 by Alicia Myers MD) Hyperparathyroidism Hypercalcemia Back strain History of positive PPD Rash Surgical History Anesthesia History of cataract removal with insertion of prosthetic lens (~2013) History of removal of cyst (~1984) Family History Father No problems noted. Sister No problems noted. Social History Smoking Status: Never smoker Smoking Status: Never smoker Substance Use Type: does not use Exam Initial Vital Signs Initial Vital Signs: Vital Signs Temperature 98.0 F 06/16/23 09:38 Pulse Rate 71 06/16/23 09:38 Respiratory Rate 18 06/16/23 09:38 Blood Pressure 200/89 H 06/16/23 09:38 Pulse Oximetry 100 06/16/23 09:38 Oxygen Delivery Method Room Air 06/16/23 09:38 ?Const: Awake, alert, no acute distress, nontoxic appearing Eyes: PERRL, EOMI, conjunctiva normal ENT: Atraumatic, dentition normal, mucous membranes moist Cardiac: regular rate, regular rhythm RESP: unlabored, clear bilaterally, no wheezing GI: Atraumatic, soft, nontender, nondistended, no rebound, no guarding MSK: Atraumatic, full range of motion, pulses equal Skin: Warm, Dry, intact, no rashes Neuro: AO x3, CN II-XII grossly intact, moves all extremities Psych: affect normal, mood normal, not suicidal, not homicidal Course Orders Ordered: Discontinued Medications Hydrochlorothiazide (Hydrochlorothiazide 25 Mg Tablet) 25 mg PO NOW ONE Stop: 06/16/23 09:46 Last Admin: 06/16/23 09:55 Dose: 25 mg Documented By: CLAUDINE Vital Signs Vital signs: Vital Signs - 8 hr 06/16/23 09:38 06/16/23 09:48 06/16/23 10:05 Temperature 98.0 F Pulse Rate 71 71 77 Respiratory Rate 18 23 Blood Pressure 200/89 H Pulse Oximetry 100 99 99 Oxygen Delivery Method Room Air 06/16/23 10:06 06/16/23 10:06 Temperature Pulse Rate 64 Respiratory Rate Blood Pressure 186/81 H Pulse Oximetry 98 Oxygen Delivery Method Medical Decision Making Lab Data 06/16/23 09:50 06/16/23 09:50 Labs: Lab Results 06/16/23 06/16/23 Range/Units 09:50 10:00 WBC 3.5 L (4.5-11.0) X10^3/uL RBC 4.46 (4.0-5.2) X10^6/uL Hgb 14.0 (12.0-16.0) g/dL Hct 41.7 (36-46) % MCV 93.5 (80-100) fL MCH 31.4 (26-34) PG MCHC 33.6 (30-36) % RDW 12.2 (11.6-14.8) % Plt Count 193 (150-400) X10^3/uL Neut % (Auto) 54.1 (50-75) % Lymph % (Auto) 34.2 (25-40) % Dickenson % (Auto) 8.3 (3-14) % Eos % (Auto) 2.5 (2-4) % Baso % (Auto) 0.9 (0-2) % Neut # (Auto) 1900 (5256-0580) /uL Lymph # (Auto) 1200 (9181-3381) /uL Dickenson # (Auto) 300 (0-900) /uL Eos # (Auto) 100 (0-450) /uL Baso # (Auto) 0 (0-100) /uL Sodium 137 (137-145) mmol/L Potassium 3.9 (3.4-5.1) mmol/L Chloride 101 (98-107) mmol/L Carbon Dioxide 28 (22-32) mmol/L BUN 9 (7-17) mg/dL Creatinine 0.60 (0.52-1.04) mg/dL Estimated GFR > 60 (>60) mL/min BUN/Creatinine Ratio 15.0 (6-22) Glucose 129 H (80-110) mg/dL Calcium 10.5 H (8.4-10.2) mg/dL Total Bilirubin 0.8 (0.2-1.3) mg/dL AST 32 (14-36) IU/L ALT 16 (<35) IU/L Alkaline Phosphatase 72 (38-126) U/L Total Protein 8.4 H (6.3-8.2) g/dL Albumin 4.5 (3.5-5.0) g/dL Globulin 3.9 (1.7-4.1) g/dL Albumin/Globulin Ratio 1.2 (1.0-2.8) Urine Color Yellow Urine Appearance Clear Urine pH 7.0 (4.5-8.0) Ur Specific [place] 1.010 (1.000-1.035) Urine Protein Negative (Negative) Urine Glucose (UA) Negative (Negative) g/dL Urine Ketones Negative (NEGATIVE) Urine Occult Blood 1+ H (Negative) Urine Nitrate Negative (Negative) Urine Bilirubin Negative (NEGATIVE) Urine Urobilinogen 0.2 (0.2) E.U./dL Ur Leukocyte Esterase Negative (NEGATIVE) Urine RBC 1-5/hpf (0-5/HPF) Urine WBC None seen (0-5/HPF) Ur Squamous Epith Cells None seen (0-5/HPF) Urine Bacteria None seen (None) Ur Culture Indicated? Cult not indicated Vol Urine Centrifuged 10ml (spun) ECG Data Interpretation: normal sinus rhythm, normal rate, normal rhythm, no ST T wave changes MDM Narrative Medical decision making narrative: asymptomatic hypertension. Labs reassuring. Patient advised to follow up with PCP. Low dose of HCTZ sent to pharmacy, recommended to f/u with PCP Discharge Plan Departure Patient Disposition: Home Clinical Impression: Hypertension Instructions: DI for High Blood Pressure Activity Restrictions/Additional Instructions: YOU MAY START THE HYDROCHLOROTHIAZIDE AT 12.5 MG DAILY. IF YOUR BLOOD PRESSURE IS NOT CONTROLLED YOU MAY INCREASE THE MEDICINE IN INCREMENTS OF 12.5 MG WITH MAXIMUM DOSE OF 50 MG DAILY. PLEASE FOLLOW UP WITH YOUR PRIMARY CARE PHYSICIAN Prescriptions: New hydrochlorothiazide 12.5 mg tablet 12.5 mg PO DAILY Qty: 60 0RF Rx Instructions: YOU MAY START WITH 12.5MG DAILY. IF YOUR BLOOD PRESSURE IS NOT CONTROLLED THEN YOU MAY INCREASE IN INCREMENTS OF 12.5MG. MAXIMUM DOSE 50MG DAILY No Action losartan 50 mg tablet 50 mg PO DAILY Qty: 90 3RF Referrals: Fahad Gramajo MD [Primary Care Provider] - Stand Alone Forms: Patient Portal/API
[2023-06-16 10:24] LABS: Bacteria Urine None Seen; Culture Indicated Urine Cult Not Indicated; RBC Urine 1-5/HPF (0-5/HPF); Squamous Epithelial Cell Urine None Seen (0-5/HPF); WBC Urine None Seen (0-5/HPF)
[2023-06-16 10:30] VITALS: BP 174/84; PULSE 62; RESP 15; O2SAT 99
== END 2023-06-16 10:51 | disposition home or self-care (01) ==
PROVIDERS: Emergency Provider Emergency Medicine; Family Provider Family Medicine; PCP Family Medicine
DX: I10 Essential (primary) hypertension (principal)
CPT/HCPCS: 36415; 80053; 81001; 85025; 93005; 99283; 99284

== ENCOUNTER → 2023-08-01 09:08 | Outpatient (CLI) | payer MEDICARE, OTHER, SELFPAY ==
[2023-08-01 09:57] LABS: Add Manual Diff / Slide Review NO; Basophils Absolute Auto 0 /uL (0-100); Eosinophils Absolute Auto 100 /uL (0-450); Eosinophils Percent Auto 2.4 % (2-4); Hemoglobin 13.1 g/dL (12.0-16.0); Lymphocytes Absolute Auto 1300 /uL (1100-4500); Mean Corpuscular HGB Conc 33.6 % (30-36); Mean Corpuscular Hemoglobin 31.2 PG (26-34); Mean Corpuscular Volume 92.7 fL (80-100); Monocytes Absolute Auto 500 /uL (0-900); Monocytes Percent Auto 9.5 % (3-14); Neutrophils Absolute Auto 3200 /uL (1500-7000); Neutrophils Percent Auto 62.1 % (50-75); Platelet Count 224 X10^3/uL (150-400); Red Blood Cell Count 4.21 X10^6/uL (4.0-5.2); White Blood Cell Count 5.2 X10^3/uL (4.5-11.0)
[2023-08-01 10:19] LABS: Alanine Aminotransferase 17 IU/L (<35); Albumin 4.4 g/dL (3.5-5.0); Albumin Globulin Ratio 1.3 (1.0-2.8); Alkaline Phosphatase 95 U/L (38-126); Aspartate Aminotransferase 29 IU/L (14-36); BUN Creatinine Ratio 10.5 (6-22); Bilirubin Total 1.1 mg/dL (0.2-1.3); Blood Urea Nitrogen 6 mg/dL (7-17); Calcium 10.4 mg/dL (8.4-10.2); Carbon Dioxide 28 mmol/L (22-32); Chloride 100 mmol/L (98-107); Cholesterol 183 mg/dL (140-199); Estimated Glomerular Filt Rate > 60 mL/min (>60); Globulin 3.5 g/dL (1.7-4.1); Glucose 95 mg/dL (80-110); HDL Cholesterol 73 mg/dL (40-60); HEMOLYSIS < 15 (0-50); LDL Cholesterol Calculated 80 mg/dL (<100); Potassium 3.6 mmol/L (3.4-5.1); Sodium 134 mmol/L (137-145); Total Protein 7.9 g/dL (6.3-8.2); Triglycerides 148 mg/dL (35-150)
[2023-08-01 10:36] LABS: TSH w/ Reflex to FT4 1.77 uIU/mL (0.47-4.68)
[2023-08-07 09:13] LABS: Calcium 10.3 mg/dL (8.7-10.3); Parathyroid Hormone, Intact 62 pg/mL (15-65)
== END ==
PROVIDERS: Family Provider Family Medicine; PCP Family Medicine; Referring Provider Family Medicine; Visit Provider Family Medicine
DX: I10 Essential (primary) hypertension (principal); E21.3 Hyperparathyroidism, unspecified; E83.52 Hypercalcemia
CPT/HCPCS: 36415; 80053; 80061; 82310; 83970; 84443; 85025